=== PATIENT | male | born 1965 | race Caucasian/White ===

== ENCOUNTER → 2020-05-19 12:01 | Outpatient (CLI) | payer OTHER, SELFPAY ==
--- NOTE | 2020-05-19 | DI.MRI.S_ITS ---
PROCEDURE: MR CERVICAL SPINE WO CON INDICATIONS: RADICULOPATHY OF THE CERVICAL REGION TECHNIQUE: Noncontrast sagittal T1 spin echo and T2 fast spin echo, sagittal STIR, foraminal oblique sagittal T2 fast spin echo, and axial gradient echo or T2 fast spin echo through the cervical spine. COMPARISON: [facility], , C-SPINE WITHOUT CONTRAST, 11/01/2014, 12:11. [facility], , SPINE CERVICAL 2 OR 3VW, 11/03/2015, 13:54. FINDINGS: Image quality: Excellent. Alignment and Curvature: There is loss of normal cervical lordosis. Bone Marrow: Marrow demonstrates normal overall signal. Anterior fusion of C5-C6 has been performed. There is mild reactive signal within the endplates adjacent to the C4-C5 intervertebral discs. Spinal Cord: Visualized spinal cord has normal size and signal. No cerebellar tonsillar herniation. Paraspinous Soft Tissues: No paravertebral masses. Prevertebral soft tissues are normal in thickness. C2-C3: Mild disc desiccation. Mild facet and uncovertebral hypertrophy bilaterally. Mild canal stenosis. Mild bilateral foraminal stenosis. No change. C3-C4: Mild disc desiccation and diffuse disc bulge. Mild facet and uncovertebral hypertrophy bilaterally. Mild canal stenosis. Moderate bilateral foraminal stenosis. No change. C4-C5: Mild disc height loss and desiccation. Moderate diffuse disc bulge. Moderate facet and uncovertebral hypertrophy bilaterally. Severe canal stenosis, increased from the prior examination. Mild cord flattening. Increased, moderate left and severe right foraminal stenosis. Right C5 nerve root compression, new since the prior examination. C5-C6: Status post fusion. Bilateral facet and uncovertebral hypertrophy. Decreased, mild canal stenosis. Moderate bilateral foraminal stenosis are unchanged. C6-C7: Status post fusion. Resolved canal stenosis. Facet and uncovertebral hypertrophy bilaterally. Moderate left and severe right foraminal stenosis. Right C7 nerve root compression. C7-T1: Mild disc desiccation and diffuse disc bulge. Mild facet and uncovertebral hypertrophy bilaterally. Mild canal stenosis. Moderate bilateral foraminal stenosis. No change. IMPRESSION: 1. Postsurgical sequelae. 2. Multilevel degenerative disc and facet disease, as well as uncovertebral hypertrophy. 3. Multilevel canal stenosis, worst at C4-C5, where there is cord flattening present. 4. Multilevel foraminal stenoses, worst at C4-C5 and C6-C7 where there is associated intraforaminal nerve root compression. Recommend correlation with clinical symptoms to ascertain relevance of these findings. Dictated by: Em Lal M.D. on 05/19/2020 at 12:41 Approved by: Em Lal M.D. on 05/19/2020 at 12:47
== END ==
PROVIDERS: Family Provider Family Medicine; PCP Family Medicine; Referring Provider Family Medicine; Visit Provider Family Medicine
DX: M54.12 Radiculopathy, cervical region (principal); M48.02 Spinal stenosis, cervical region
CPT/HCPCS: 72141

== ENCOUNTER 2020-07-18 13:41 | Day surgery (SDC) | payer OTHER, SELFPAY ==
[2020-07-18] VITALS (9 sets, daily range): BP systolic 110–147; BP diastolic 63–91; PULSE 77–90; RESP 10–17; TEMP 36.2–36.6; O2SAT 93–98; BMI 32.1
--- NOTE | 2020-07-18 | DI.RAD.S_ITS ---
PROCEDURE: XR CERVICAL SPINE 2V OR 3V INDICATIONS: ACDF C4-5 TECHNIQUE: To view(s) of the cervical spine were acquired. COMPARISON: [facility], XR CERVICAL SPINE WITH OBLIQUES, 05/23/2020, 14:04. FINDINGS: Bones: Postoperative digital acquisition imaging shows previously present anterior fusion plate spanning from C5-C6 through C7, stable over time with reference to the prior plain film imaging 05/23/20. There appears to have been placement of 2 separate interbody fixation devices centered on the C4-C5 disc level, more vertically oriented on the left and more diagonal in orientation on the right. The exact positioning of the fixation screws angled cephalad and caudad is indeterminate by this study. At least on the left the superior screw appears to engage the vertebral body marrow space of C4. Soft tissues: No prevertebral soft tissue swelling. IMPRESSION: Previous fixation plate spanning C5 through C7 is stable over time. Two apparent new fixation devices are centered on the C4-C5 interspace, with exact positioning of the fixation screws not established by this study. Follow-up plain film or CT imaging is recommended if clinically warranted. Dictated by: Vazquez Chase M.D. on 07/19/2020 at 9:33 Approved by: Vazquez Chase M.D. on 07/19/2020 at 9:40
[2020-07-18] MEDS: LACTATED RINGERS 1,000 ML 42 ML IV (14:20)
[2020-07-18] MEDS: ACETAMINOPHEN 325 MG TABLET 975 MG PO (14:21)
[2020-07-18] MEDS: CEFAZOLIN 2 GM/100 ML FROZ.PIGGY IV (17:10)
--- NOTE | 2020-07-18 17:41 | SUR.OPER ---
Supine, head on gel donut. Arms padded with gel pads, tucked at sides, towel roll under shoulders. Tape from top of shoulder to foot of bed to provide traction. Safety belt at thigh. Legs uncrossed.
--- NOTE | 2020-07-18 19:03 | P.OP_ITS ---
Operative Date/Time/Diagnoses Date of procedure: 07/18/20 Time of procedure: 16:34 Pre-op diagnosis: 1. C4-5 spinal stenosis 2. C4-5 spondylosis with radiculopathy Post-op diagnosis: same Procedure & Clinicians Procedure: 1. C4-5 anterior cervical diskectomy and fusion 2. C4-5 anterior interbody cage placement 3. C4-5 anterior instrumentation with plate and screw placement in C4 and C5 vertebrae 4. Utilization of microsurgical technique and operating microscope Same procedure as scheduled: Yes Indications: Patient has been having worsening neck pain and worsening cervical radiculopathy over the last 6 months. Patient had a previous C5-7 anterior cervical diskectomy and fusion with good outcome. Patient failed multiple conservative management with worsening pain weakness and numbness in her upper extremity. Patient has been having difficulty performing activity of daily living. After discussing risks benefits of treatment options, patient elected proceed with surgery. Surgeon: Felicita Pretty [employer] Department Chair: Sylvie De Leon Click Yes if Unassisted: No Anesthesia Type: General Operative Notes Closure Type: primary Specimen(s): none sent Prosthetic devices, grafts, tissues, transplants, or devices: Globus Estimated Blood Loss (mL): 25 Blood products transfused: none Procedure in detail: Patient was seen in the preoperative area. Risks and benefits of the surgery was discussed with the patient. Informed consent was obtained from the patient and placed in the chart. Surgical site was marked. Patient was taken to the operative room. General anesthesia was administered. Prophylactic antibiotic was given to the patient less than 30 min before the incision was made. Patient was placed into a supine position on a radiolucent table. Patient's shoulders were taped down to allow proper C-arm imaging. Anterior cervical area was prepped and draped in a sterile fashion. Time-out was performed at this time. Using lateral C-arm imaging, the level between C4 and C5 was identified and marked on patient's neck. A oblique incision from midline towards medial border of sternocleidomastoid muscle was made. The platysma muscle was incised in line with skin incision. Metzenbaum scissor was used to develop the plane between the medial border of sternocleidomastoid d and the strap muscles medially. The carotid sheath and its contents were identified and protected behind the hand- held retractor during the entire case. The plane between the carotid sheath and strap muscles was developed with Metzenbaum scissors. Dissection was made down to the level of the anterior cervical fascia. Longus colli muscle was incised on the anterior aspect of vertebral bodies bilaterally from C4-C5. Spinal needle was placed into the C4-5 disc space and confirmed with lateral C-arm imaging. Using microsurgical technique and operative microscope, anterior cervical diskectomy was performed at C4-5 level. This was done by removing the disc material, removing the anterior and posterior osteophytes posterior longitudinal ligaments along with performing bilateral foraminotomies at the C4-5 levels. Patient was found to have severe foraminal stenosis. Patient's stenosis was fully decompressed after decompression was completed. After the diskectomy was completed, an anterior interbody cage was obtained. The cage was packed with DBM bone grafting material. One cage along with the bone grafting material was then packed into the interbody space at C4-5 along with an anterior cervical plate. The cervical plate was stabilized to the C4-5 vertebrae using 2 screws. After confirming placement of the hardware with AP and lateral C-arm imaging, the screws were locked into the plate using the locking mechanism and torque limiting screwdriver. After the hardware was placed and confirmed with AP and lateral C-arm imaging, the wound was irrigated with sterile normal saline. The platysma muscle and the subcutaneous tissue was closed with 2-0 Vicryl. The skin was closed with 4-0 Monocryl and Steri-Strips. Patient tolerated the procedure well. Patient was transferred recovery room in stable condition. There were no complications. Complications: none Post-operative Condition: stable Disposition: PACU Plan for aftercare: Discharge to home
[2020-07-18] MEDS: OXYCODONE IR 5 MG TABLET PO ×2 (19:31→20:01)
== END 2020-07-18 20:17 | disposition home or self-care (01) ==
PROVIDERS: Family Provider Family Medicine; PCP Family Medicine; Referring Provider Family Medicine; Visit Provider Orthopaedic Surgery Orthopaedic Surgery of the Spine
PROC: (CPT 22551; principal; 2020-07-18 15:15)
DX: M48.02 Spinal stenosis, cervical region (principal); M47.22 Other spondylosis with radiculopathy, cervical region; M79.18 Myalgia, other site
CPT/HCPCS: 22551; 22853; 72040; 76000; C1776; J0690; J1100; J1170; J2250; J2405; J2704; J3010

== ENCOUNTER → 2021-05-22 12:59 | Outpatient (CLI) | payer OTHER, SELFPAY ==
--- NOTE | 2021-05-22 | DI.MRI.S_ITS ---
PROCEDURE: MR CERVICAL SPINE WO CON INDICATIONS: Radiculopathy, cervical region TECHNIQUE: Noncontrast sagittal T1 spin echo and T2 fast spin echo, sagittal STIR, foraminal oblique sagittal T2 fast spin echo, and axial gradient echo or T2 fast spin echo through the cervical spine. COMPARISON: [facility], MR, MR CERVICAL SPINE WO CON, 05/19/2020, 12:17. [facility], MR, C-SPINE WITHOUT CONTRAST, 11/01/2014, 12:11. [facility], CR, XR CERVICAL SPINE 2V OR 3V, 07/18/2020, 18:50. [facility], CR, XR CERVICAL SPINE WITH OBLIQUES, 05/23/2020, 14:04. FINDINGS: Image quality: There is artifact associated with the metallic hardware. This examination is limited by involuntary motion artifact. Alignment and Curvature: There is normal bony alignment. Bone Marrow: Marrow demonstrates normal overall signal. Spinal Cord: Visualized spinal cord has normal size and signal. No cerebellar tonsillar herniation. Paraspinous Soft Tissues: No paravertebral masses. Prevertebral soft tissues are normal in thickness. Anterior fixation hardware is seen C4 through C7. Disc spacers are seen throughout the fused region. C2-C3: The disc height is well-preserved. Loss of disc signal is seen at this level. Moderate generalized disc osteophyte complex is seen. Moderate facet joint hypertrophy is seen. Moderate bilateral neural foraminal narrowing is seen. Minimal central canal narrowing is seen. When comparison is made with the prior images, these findings are similar. C3-C4: The disc height is well-preserved. Loss of disc signal is seen at this level. A mild degree of generalized disc osteophyte complex is seen. There is a mild central disc osteophyte protrusion seen. Moderate facet joint hypertrophy is seen. Moderate bilateral neural foraminal narrowing is seen. Mild to moderate central canal narrowing is seen. When comparison is made with the prior images, these findings are similar. C4-C5: Moderate disc osteophyte complex is seen, which is eccentric to the right, with a right foraminal osteophyte protrusion, as on series 5, image 23. There is moderate facet hypertrophy seen. There is moderate to severe bilateral neural foraminal narrowing seen, right worse than left. Moderate to severe central canal narrowing is seen. There is associated mass effect upon the ventral spinal cord. No significant change from the prior. C5-C6: Moderate generalized disc osteophyte complex is seen. Mild to moderate facet hypertrophy is seen at this level. There is moderate to severe bilateral neural foraminal narrowing seen. Mild central canal narrowing is seen. Stable from the prior study. C6-C7: Moderate generalized disc osteophyte complex is seen. Mild to moderate bilateral facet hypertrophy can be seen. There is at least moderate bilateral neural foraminal narrowing seen. Minimal central canal narrowing is seen. No significant change from the prior. C7-T1: The disc height is well-preserved. Loss of disc signal is seen at this level. Moderate generalized disc osteophyte complex is seen. Mild to moderate bilateral neural foraminal narrowing can be seen. No central canal narrowing is seen. When comparison is made with the prior images, these findings are similar. IMPRESSION: C4 through C7 anterior fixation hardware. Multiple levels of degenerative change are seen, which are not significantly progressed compared to the prior. Dictated by: Ever Davila M.D. on 05/22/2021 at 13:02 Approved by: Ever Davila M.D. on 05/22/2021 at 13:07
== END ==
PROVIDERS: Family Provider Family Medicine; PCP Family Medicine; Referring Provider Family Medicine; Visit Provider Family Medicine
DX: M47.22 Other spondylosis with radiculopathy, cervical region (principal)
CPT/HCPCS: 72141

== ENCOUNTER 2022-04-30 17:03 | Emergency (ER) | payer OTHER, SELFPAY ==
[2022-04-30 17:06] VITALS: BP 165/105; PULSE 91; RESP 20; TEMP 36.7; O2SAT 97
[2022-04-30 17:41] LABS: Alanine Aminotransferase 67 IU/L (<50); Albumin 4.6 g/dL (3.5-5.0); Albumin Globulin Ratio 1.4 (1.0-2.8); Alkaline Phosphatase 67 U/L (38-126); Aspartate Aminotransferase 37 IU/L (17-59); Bilirubin Total 0.5 mg/dL (0.2-1.3); Blood Urea Nitrogen 20 mg/dL (9-20); Calcium 8.9 mg/dL (8.4-10.2); Carbon Dioxide 22 mmol/L (22-32); Chloride 107 mmol/L (98-107); Estimated Glomerular Filt Rate > 60 mL/min (>60); Globulin 3.2 g/dL (1.7-4.1); Glucose 127 mg/dL (70-100); HEMOLYSIS 20 (0-50); Lipase 63 U/L (23-300); Potassium 3.7 mmol/L (3.4-5.1); Sodium 140 mmol/L (137-145); Total Protein 7.8 g/dL (6.3-8.2)
[2022-04-30 17:52] LABS: Add Manual Diff / Slide Review NO; Basophils Absolute Auto 0 /uL (0-100); Basophils Percent Auto 0.2 % (0-2); Eosinophils Absolute Auto 0 /uL (0-450); Eosinophils Percent Auto 0.4 % (2-4); Hematocrit 47.2 % (41-53); Hemoglobin 16.6 g/dL (13.5-17.5); Lymphocytes Absolute Auto 1100 /uL (1100-4500); Mean Corpuscular HGB Conc 35.2 % (30-36); Mean Corpuscular Volume 93.6 fL (80-100); Monocytes Absolute Auto 700 /uL (0-900); Monocytes Percent Auto 6.7 % (3-14); Neutrophils Absolute Auto 8900 /uL (1500-7000); Neutrophils Percent Auto 82.7 % (50-75); Platelet Count 171 X10^3/uL (150-400); Red Blood Cell Count 5.04 X10^6/uL (4.5-5.9); Red Cell Distribution Width 13.7 % (11.6-14.8); White Blood Cell Count 10.7 X10^3/uL (4.5-11.0)
[2022-04-30 18:02] VITALS: BP 165/99; PULSE 78; RESP 15; O2SAT 98
--- NOTE | 2022-04-30 18:17 | ED_ITS ---
HPI - Abdominal Pain General Chief Complaint: Abdominal Pain Stated Complaint: ABD pain Time Seen by Provider: 04/30/22 18:16 Source: patient Mode of arrival: Ambulatory History of Present Illness HPI narrative: Patient is a 57-year-old male no past medical history presenting today with left lower quadrant pain. He says it was there a couple of nights ago off and on it then got better and came back today. He was nauseous but no vomiting he denies any flank pain. This has never happened to him before. He has no painful or frequent urination. No chest pain shortness of breath palpitations. He currently is not having pain and does not want pain medication Related Data Home Medications Medication Instructions Recorded Confirmed CA PANTOTHENATE/FOLIC ACID/VIT 1 tab PO QDAY #0 tabs 03/31/13 11/20/21 (MULTIVITAMIN) CHOLECALCIFEROL (VITAMIN D) 2,000 units PO QDAY ##0 03/31/13 11/20/21 VITAMIN B COMPLEX (Vitamin B 1 tab PO QDAY #0 tabs 03/31/13 11/20/21 Complex) acetaminophen 325 mg tablet 325 mg PO DAILY 07/15/20 11/20/21 melatonin 3 mg tablet 3 mg PO BEDTIME 07/15/20 11/20/21 tadalafil 5 mg tablet (Cialis) 5 mg PO DAILY PRN Erectile 07/18/20 11/20/21 Dysfunction Previous Rx's Medication Instructions Recorded tadalafil 5 mg tablet 10 mg PO .Q 3 Days PRN sexual 12/12/21 activity #50 tabs hydrocodone 5 mg-acetaminophen 325 1 tab PO Q6H PRN pain #10 tabs 04/30/22 mg tablet ondansetron 4 mg disintegrating 4 mg PO Q8H PRN nausea and 04/30/22 tablet vomiting #10 tabs Allergies Allergy/AdvReac Type Severity Reaction Status Date / Time NSAIDS (Non-Steroidal AdvReac Mild GI BLEED Verified 07/18/20 14:16 Anti-Inflamma Review of Systems Review of Systems Narrative: GENERAL: Denies chills, fatigue, malaise, fever, sweats, travel HEENT: Denies sinus pain, ear pain, sore throat, difficulty swallowing, neck pain RESPIRATORY: Denies dyspnea, cough, wheezing, hemoptysis, sputum. CARDIOVASCULAR: Denies chest pain, palpitations, orthopnea, edema GASTROINTESTINAL: See HPI : Denies dysuria, frequency, incontinence, hematuria, urinary retention, flank pain. MUSCULOSKELETAL: Denies weakness, joint pain, or bony pain SKIN: No rash, no erythema, no pruritus NEUROLOGIC: Denies weakness, dizziness, headache, numbness, change in speech, confusion PSYCHIATRIC: No concerning psychosocial issues. 12 point review of systems is negative except for those stated above and HPI Patient History Medical History Arm fracture Elevated LFTs Encounter for [employer] ([employer]) examination Encounter for hepatitis C screening test for low risk patient Encounter for screening for HIV Former smoker Gastric ulcer due to nonsteroidal anti-inflammatory drug (NSAID) Hyperlipidemia Ingrown nail of great toe of right foot Lipid screening Pain associated with surgical procedure Preoperative examination Reactive airway disease Screening for colon cancer Screening for diabetes mellitus Spinal stenosis Surgical History H/O hand surgery History of colectomy History of fusion of cervical spine Social History household members: none Smoking Status: Former smoker alcohol intake: current Smoking Status: Former smoker alcohol intake frequency: 0-2 drinks per day Substance Use Type: does not use Exam Initial Vital Signs Initial Vital Signs: Vital Signs Temperature 98.1 F 04/30/22 17:06 Pulse Rate 91 H 04/30/22 17:06 Respiratory Rate 20 04/30/22 17:06 Blood Pressure 165/105 H 04/30/22 17:06 Pulse Oximetry 97 04/30/22 17:06 Oxygen Delivery Method 04/30/22 17:06 GENERAL: Alert pleasant 57-year-old male and in no acute distress. HEENT: Head atraumatic,EOMI, pupils reactive, face symmetric, moist mucous membranes CARDIOVASCULAR: Regular rate and rhythm without murmurs, rubs or gallops. RESPIRATORY: Breath sounds equal bilaterally, no wheezes rales or rhonchi. ABDOMEN: Soft, nontender. Mild left lower quadrant pain without guarding or rebound : No CVA tenderness EXTREMITIES: Normal range of motion, no clubbing or edema. Neurovascularly intact NEUROLOGICAL: Alert and oriented x4.Normal gait and speech. Cranial nerves II through XII grossly intact. SKIN: Warm, dry, no laceration, no petechiae, no rashes or lesions. Course Orders Ordered: ED Orders 04/30/22 18:28 CT abdomen pelvis w con Stat Discontinued Medications Hydrocodone Bitart/Acetaminophen (Hydrocodone/Acet 5/325 Prepack) 1 bottle MISC SEEINSTR ONE Stop: 04/30/22 21:01 Last Admin: 04/30/22 21:12 Dose: 1 bottle Documented By: RB Ondansetron HCl (Ondansetron 4 Mg Odt Prepack) 1 bottle MISC SEEINSTR ONE Stop: 04/30/22 21:01 Last Admin: 04/30/22 21:12 Dose: 1 bottle Documented By: RB Vital Signs Vital signs: Vital Signs - 8 hr 04/30/22 19:30 04/30/22 21:13 Temperature 98.1 F Pulse Rate 84 76 Respiratory Rate 20 Blood Pressure 152/80 H Pulse Oximetry 97 98 Oxygen Delivery Method Room Air MDM - Abdominal Pain Lab Data Result diagrams: 04/30/22 17:14 04/30/22 17:14 Labs: Lab Results 04/30/22 04/30/22 04/30/22 Range/Units 17:14 17:14 17:58 WBC 10.7 (4.5-11.0) X10^3/uL RBC 5.04 (4.5-5.9) X10^6/uL Hgb 16.6 (13.5-17.5) g/dL Hct 47.2 (41-53) % MCV 93.6 (80-100) fL MCH 33.0 (26-34) PG MCHC 35.2 (30-36) % RDW 13.7 (11.6-14.8) % Plt Count 171 (150-400) X10^3/uL Neut % (Auto) 82.7 H (50-75) % Lymph % (Auto) 10.0 L (25-40) % [place] % (Auto) 6.7 (3-14) % Eos % (Auto) 0.4 L (2-4) % Baso % (Auto) 0.2 (0-2) % Neut # (Auto) 8900 H (6314-4902) /uL Lymph # (Auto) 1100 (4576-9065) /uL [place] # (Auto) 700 (0-900) /uL Eos # (Auto) 0 (0-450) /uL Baso # (Auto) 0 (0-100) /uL Sodium 140 (137-145) mmol/L Potassium 3.7 (3.4-5.1) mmol/L Chloride 107 (98-107) mmol/L Carbon Dioxide 22 (22-32) mmol/L BUN 20 (9-20) mg/dL Creatinine 0.77 (0.66-1.25) mg/dL Estimated GFR > 60 (>60) mL/min BUN/Creatinine Ratio 26.0 H (6-22) Glucose 127 H (70-100) mg/dL Calcium 8.9 (8.4-10.2) mg/dL Total Bilirubin 0.5 (0.2-1.3) mg/dL AST 37 (17-59) IU/L ALT 67 H (<50) IU/L Alkaline Phosphatase 67 (38-126) U/L Total Protein 7.8 (6.3-8.2) g/dL Albumin 4.6 (3.5-5.0) g/dL Globulin 3.2 (1.7-4.1) g/dL Albumin/Globulin Ratio 1.4 (1.0-2.8) Lipase 63 (23-300) U/L Urine Color Yellow Urine Appearance Clear Urine pH 5.5 (4.5-8.0) Ur Specific [place] 1.015 (1.000-1.035) Urine Protein Negative (Negative) Urine Glucose (UA) Negative (Negative) g/dL Urine Ketones Negative (NEGATIVE) Urine Occult Blood 3+ H (Negative) Urine Nitrate Negative (Negative) Urine Bilirubin Negative (NEGATIVE) Urine Urobilinogen 0.2 (0.2) E.U./dL Ur Leukocyte Esterase Negative (NEGATIVE) Urine RBC >100/hpf H (0-5/HPF) Urine WBC None seen (0-5/HPF) Urine Bacteria None seen (None) Ur Culture Indicated? Cult not indicated Imaging Data CT scan - abdomen/pelvis: Radiologist's Impression: Signed Patient: Virgil Gilbert MR#: [id number] : 1965 Acct:[id number] Age/Sex: 57 / M Date of Service: 04/30/22 Loc: ED Accession Number: [id number] ?? Procedure: CT abdomen pelvis w con Ordering Provider: Maryse Mckeon D.O. PROCEDURE:? CT ABDOMEN PELVIS W CON ? INDICATIONS:? llq pain ? TECHNIQUE:? After the administration of oral and IV contrast, axial sections were acquired from the lung bases to the pubic symphysis.? Coronal and sagittal reformats were performed.? For radiation dose reduction, the following was used:? automated exposure control, adjustment of mA and/or kV according to patient size. ? COMPARISON:? None. ? FINDINGS:? Image quality:? Excellent.? ? Lung bases:? Unremarkable.? ? Heart:? No significant findings. ? ? ABDOMEN: Liver:? Unremarkable.? ? Gallbladder:? Unremarkable.? ? Biliary ducts:? Unremarkable.? ? Pancreas:? Unremarkable.? ? Spleen:? Unremarkable.? ? Adrenal Glands:? Unremarkable.? ? Kidneys and Ureters:? There is mild left hydronephrosis and perinephric stranding.? A 4 mm stone is seen at the left vesicle junction.? No other renal calculi.? Right kidney is grossly normal.? ? ? Stomach and Bowel:? Stomach, small bowel loops, and colon are caliber.? A few colonic diverticula are present.? No acute diverticulitis.? There is mild colonic wall thickening and increased submucosal fat in the descending and sigmoid colon.? Possible concentric rectal anal thickening.? Peritoneum:? No abnormal intraperitoneal fluid.? No free air.? ? Ventral Wall: ? No hernia.? Abdominal Nodes:? No retroperitoneal or mesenteric adenopathy by size criteria.? Vessels:? Aorta and inferior vena cava are normal in size.? ? PELVIS: Pelvic Organs:? Unremarkable.? ? Bladder:? Unremarkable.? ? Pelvic Nodes: No enlarged lymph nodes.? Miscellaneous: No inguinal hernias are seen. ? ? ? Bones:? Unremarkable.? IMPRESSION:? ? 1. A 4 mm stone at the left UVJ.? There is mild left hydronephrosis and perinephric stranding. ? 2. Mild diverticulosis.? No acute diverticulitis. ? 3. There is mild colonic wall thickening and increased submucosal fat attenuation within the colonic wall.? Question of thickening of rectum at the rectal anal junction.? The findings could be related to inflammatory bowel disease such as ulcerative c olitis.? Alternatively, the finding may be secondary to artifact from in adequate distension.? Recommend clinical correlation.? ? 4. Hepatic steatosis.? Dictated by: Jamar Wise M.D. on 04/30/2022 at 20:30 ? ? Approved by: Jamar Wise M.D. on 04/30/2022 at 20:36 ? [facility] Narrative Medical decision making narrative: Patient has left lower quadrant pain. It started couple days ago and worse today. He is found to have hematuria. CT confirms a 4 mm kidney stone. No sign of infection. He has not needed anything for pain here in the emergency department. He states he can not tolerate NSAIDs due to gastric ulcer. He is not septic at this time. Supportive care at home. Discharge Plan Departure Patient Disposition: Home Clinical Impression: Kidney stone on left side Instructions: DI for Kidney Stones Activity Restrictions/Additional Instructions: *You have been diagnosed with kidney stone left side *What to do: You found to have a 4 mm kidney stone on left side. You should pass in the next 24-48 hours. Expect to have some pain and nausea. She continue to stay hydrated *Continue to take medications as directed--> SENT TO [facility] Zofran 4 mg every 8 hours if needed for nausea vomiting [place] 1 tablet every 6 hours if needed for severe pain *Follow up with your primary care provider in 2-3 days or call [phone] *Return to ER if you should have increased pain persistent vomiting fever or any new, worsening or concerning symptoms CONTROLLED SUBSTANCE DISCHARGE (Narcotoic/benzodiazepine/Flexeril/Phenergan) 1. You have been prescribed narcotic medications, it does have acetaminophen/Tylenol/paracetamol in it, DO NOT TAKE MORE THAN 4,00mg in 24 hours of Tylenol. TRAMADOL DOES NOT CONTAIN TYLENOL 2. Please understand that we cannot provide further refills of narcotics, benzodiazepines or controlled substances through the ED and her pain management will need to be through your provider. 3. While on these medications you cannot drive or operate heavy machinery. 4. You cannot sign legal documents or perform any duties such as this. 5. As long as you're taking opiate pain medications he should also be taking a stool softener such as Colace, Dulcolax, MiraLAX or prune juice, to help avoid constipation. Prescriptions: New hydrocodone-acetaminophen 5-325 mg tablet 1 tab PO Q6H PRN (Reason: pain) Qty: 10 0RF ondansetron 4 mg tablet,disintegrating 4 mg PO Q8H PRN (Reason: nausea and vomiting) Qty: 10 0RF No Action CA PANTOTHENATE/FOLIC ACID/VIT (MULTIVITAMIN) 1 tab PO QDAY Qty: 0 CHOLECALCIFEROL (VITAMIN D) 2,000 units PO QDAY Qty: 0 VITAMIN B COMPLEX (Vitamin B Complex) 1 tab PO QDAY Qty: 0 acetaminophen 325 mg Tablet 325 mg PO DAILY melatonin 3 mg Tablet 3 mg PO BEDTIME tadalafil 5 mg tablet 10 mg PO .Q 3 Days PRN (Reason: sexual activity) Qty: 50 0RF Rx Instructions: Take 10mg every 3 days prn for sexual activity. Take 30 min prior to coitus. tadalafil [Cialis] 5 mg Tablet 5 mg PO DAILY PRN (Reason: Erectile Dysfunction) Referrals: Brian Chavez MD [Primary Care Provider] - Visit Report Forms: Patient Portal/API
[2022-04-30 18:24] LABS: Appearance Urine UA CLEAR; Bilirubin Urine UA NEGATIVE (NEGATIVE); Color Urine UA YELLOW; Glucose Urine UA NEGATIVE (Negative); Ketones Urine UA NEGATIVE (NEGATIVE); Leukocyte Esterase Urine UA NEGATIVE (NEGATIVE); Nitrite Urine UA NEGATIVE (Negative); Occult Blood Urine UA 3+ (Negative); Protein Urine UA NEGATIVE (Negative); Specific Gravity Urine UA 1.015 (1.000-1.035); Urobilinogen Urine UA 0.2 E.U./dL (0.2); pH Urine UA 5.5 (4.5-8.0)
--- NOTE | 2022-04-30 18:28 | DI.CT.S_ITS ---
PROCEDURE: CT ABDOMEN PELVIS W CON INDICATIONS: llq pain TECHNIQUE: After the administration of oral and IV contrast, axial sections were acquired from the lung bases to the pubic symphysis. Coronal and sagittal reformats were performed. For radiation dose reduction, the following was used: automated exposure control, adjustment of mA and/or kV according to patient size. COMPARISON: None. FINDINGS: Image quality: Excellent. Lung bases: Unremarkable. Heart: No significant findings. ABDOMEN: Liver: Unremarkable. Gallbladder: Unremarkable. Biliary ducts: Unremarkable. Pancreas: Unremarkable. Spleen: Unremarkable. Adrenal Glands: Unremarkable. Kidneys and Ureters: There is mild left hydronephrosis and perinephric stranding. A 4 mm stone is seen at the left vesicle junction. No other renal calculi. Right kidney is grossly normal. Stomach and Bowel: Stomach, small bowel loops, and colon are caliber. A few colonic diverticula are present. No acute diverticulitis. There is mild colonic wall thickening and increased submucosal fat in the descending and sigmoid colon. Possible concentric rectal anal thickening. Peritoneum: No abnormal intraperitoneal fluid. No free air. Ventral Wall: No hernia. Abdominal Nodes: No retroperitoneal or mesenteric adenopathy by size criteria. Vessels: Aorta and inferior vena cava are normal in size. PELVIS: Pelvic Organs: Unremarkable. Bladder: Unremarkable. Pelvic Nodes: No enlarged lymph nodes. Miscellaneous: No inguinal hernias are seen. Bones: Unremarkable. IMPRESSION: 1. A 4 mm stone at the left UVJ. There is mild left hydronephrosis and perinephric stranding. 2. Mild diverticulosis. No acute diverticulitis. 3. There is mild colonic wall thickening and increased submucosal fat attenuation within the colonic wall. Question of thickening of rectum at the rectal anal junction. The findings could be related to inflammatory bowel disease such as ulcerative colitis. Alternatively, the finding may be secondary to artifact from in adequate distension. Recommend clinical correlation. 4. Hepatic steatosis. Dictated by: Jamar Wise M.D. on 04/30/2022 at 20:30 Approved by: Jamar Wise M.D. on 04/30/2022 at 20:36
[2022-04-30 18:30] VITALS: BP 156/92; PULSE 76; RESP 15; O2SAT 95
[2022-04-30 18:32] LABS: Bacteria Urine None Seen; Culture Indicated Urine Cult Not Indicated; RBC Urine >100/HPF (0-5/HPF); WBC Urine None Seen (0-5/HPF)
[2022-04-30 19:00] VITALS: PULSE 79; RESP 17; O2SAT 97
[2022-04-30 19:30] VITALS: PULSE 84; O2SAT 97
[2022-04-30] MEDS: HYDROCODONE/ACET 5/325 PREPACK 1 BOTTLE MISC (21:12)
[2022-04-30] MEDS: ONDANSETRON 4 MG ODT PREPACK 1 BOTTLE MISC (21:12)
[2022-04-30 21:13] VITALS: BP 152/80; PULSE 76; RESP 20; TEMP 36.7; O2SAT 98
== END 2022-04-30 21:14 | disposition home or self-care (01) ==
PROVIDERS: Emergency Medicine; Emergency Provider Emergency Medicine; Family Provider Family Medicine; PCP Family Medicine
DX: N20.0 Calculus of kidney (principal); R11.0 Nausea
CPT/HCPCS: 36415; 74177; 80053; 81001; 83690; 85025; 99284; Q9967